=== PATIENT | female | born 2005 | race Asian ===

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

== ENCOUNTER 2025-05-06 13:16 | Emergency (ER) | payer OTHER, SELFPAY ==
[2025-05-06 13:18] VITALS: BP 95/59; PULSE 61; RESP 20; TEMP 36.6; O2SAT 100; BMI 26.3
--- NOTE | 2025-05-06 14:08 | EKG12_ITS ---
Test Reason : DIZZY Blood Pressure : */* mmHG Vent. Rate : 57 BPM Atrial Rate : 57 BPM P-R Int : 128 ms QRS Dur : 86 ms QT Int : 396 ms P-R-T Axes : 34 44 22 degrees QTcB Int : 385 ms Sinus bradycardia Otherwise normal ECG Confirmed by AMAYA DIAZ ([id number]), manuscript editor MARYSE SHIRLEY ([id number]) on 05/07/2025 1:49:41 PM Referred By: Confirmed By: AMAYA DIAZ
--- NOTE | 2025-05-06 14:14 | EX.ED.DYSGE1 ---
HPI History of Present Illness Chief Complaint: Dizziness Narrative Narrative: Chief complaint and HPI: Vertigo. 19-year-old female with past medical history of vertigo, Graves' disease who is now hypothyroidism per her report not on medication presents for evaluation of vertigo. Patient states that she has a history of intermittent vertigo since she was in elementary school. Does not take any medication for the vertigo. She states this morning she woke up and shortly later developed dizziness which she describes as room spinning. Associated symptom is nausea. States there was an episode where she felt weak and presyncopal however this quickly resolved. Patient admits to not eating or drinking much today. She has an IUD with irregular menstrual cycles but does not believe herself to be . She denies any fever, chills, shortness of breath, chest pain, abdominal pain, dysuria. Review of systems: See HPI Medications: As listed on the chart Allergies: As listed on the chart PFSH: Per chart Vital signs: As listed on the chart. Reviewed. Physical exam: Gen: A&O x3, NAD Head: Normocephalic, atraumatic Eyes: No sclera icterus, conjunctiva clear, PERRL, EOMI, no nystagmus ENT: TMs clear BL, moist mucous membranes, posterior oropharynx unremarkable, uvula midline, tonsils not enlarged Neck: Trachea midline, No JVD, Full ROM CV: RRR, no murmurs, no peripheral edema Resp: Lungs CTA BL, no w/r/c GI: Abd soft, non-distended, non-tender, no r/r/g Musc: Full ROM, no deformity, strength +5/5 in all extremities Skin: Warm, dry, no rash Neuro: Alert, oriented, grossly intact, sensation intact Psych: Cooperative, appropriate mood and affect [facility] Medical History (Updated 05/06/25 @ 17:[address] Jusot De León, ) Depression PTSD (post-traumatic stress disorder) Graves disease Vertigo Hyperthyroidism Home Medications ?Medication ?Instructions ?Recorded ?Last Taken ?Type meclizine 25 mg tablet 25 mg PO 4X/DAY PRN PRN Dizziness 05/06/25 Unknown Rx 3 days #12 tabs Allergy/AdvReac Type Severity Reaction Status Date / Time No Known Allergies Allergy Verified 05/06/25 13:21 Social History Smoking Status: Never smoker EXAM Physical Exam Const Vital Signs: 05/06/25 13:18 05/06/25 14:19 05/06/25 15:16 Temperature 98 F Temperature Source Oral Pulse Rate 61 78 Pulse Rate [Lying] 68 Pulse Rate [Sitting (for 1 minute prior to obtaining)] 62 Pulse Rate [Standing (for 1 minute prior to obtaining)] 88 Respiratory Rate 20 H Blood Pressure 95/59 L 101/76 Blood Pressure [Lying] 101/67 Blood Pressure [Sitting (for 1 minute prior to obtaining)] 105/72 Blood Pressure [Standing (for 1 minute prior to obtaining)] 109/63 Blood Pressure Mean 71 84 Blood Pressure Mean [Lying] 78 Blood Pressure Mean [Sitting (for 1 minute prior to obtaining)] 83 Blood Pressure Mean [Standing (for 1 minute prior to obtaining)] 78 Pulse Ox 100 Oxygen Delivery Method Room Air MDM MDM MDM Narrative Medical decision making narrative: 19-year-old female with past medical history of vertigo, Graves' disease who is now hypothyroidism per her report not on medication presents for evaluation of vertigo. Patient states that she has a history of intermittent vertigo since she was in elementary school. Does not take any medication for the vertigo. States she developed vertigo earlier this morning. Mildly improved. Endorses decreased p.o. intake today. Differential diagnosis includes but is not limited to vertigo, dehydration, electrolyte abnormality, arrhythmia, thyroid disease, , UTI, orthostatic hypotension. NS bolus, meclizine ordered for symptoms. Basic labs ordered with EKG. Orthostatic vital signs are negative except patient did endorse dizziness with positions. CBC unremarkable without leukocytosis or anemia. BMP unremarkable without significant electrolyte abnormality or RONNY. Thyroid unremarkable. UA negative for UTI. Patient does have RBCs and +1 bacteria however she has no leuk esterase or WBCs. She denies any dysuria, frequency, hematuria. Will send for culture but not treat for infection. Urine negative. On reevaluation, patient states her dizziness has resolved. She was able to ambulate in emergency department without difficulty. Suspect patient's symptoms are likely secondary to her known vertigo. Meclizine as needed for vertigo. Follow-up with PCP. Return precautions explained. She friend understand the plan. Patient will discharge home. EKG: Interpreted by me/EM physician: Chest x-ray shows sinus bradycardia without any acute ischemic changes. Heart rate 57 Impression: 1. Vertigo 2. History of vertigo Lab Data Labs: Laboratory Results - last 24 hr 05/06/25 05/06/25 05/06/25 13:04 14:15 15:28 WBC 6.0 RBC 3.92 L Hgb 12.3 Hct 35.3 L MCV 90.1 MCH 31.4 MCHC 34.8 RDW Std Deviation 38.7 RDW Coeff of Иван 11.8 Plt Count 234 MPV 10.1 Immature Gran % (Auto) 0.200 Neut % (Auto) 61.9 Lymph % (Auto) 31.3 [place] % (Auto) 4.9 Eos % (Auto) 1.2 Baso % (Auto) 0.5 Absolute Neuts (auto) 3.7 Absolute Lymphs (auto) 1.86 Nucleated RBC % 0 Sodium 137 Potassium 4.1 Chloride 103 Carbon Dioxide 22.6 Anion Gap 12 BUN 10 Creatinine 0.89 Estim Creat Clear Calc 90.17 Est GFR (MDRD) Non-Af 95 BUN/Creatinine Ratio 11.2 Glucose 87 Calcium 9.0 TSH 0.654 Free T4 1.00 Urine Color Yellow Urine Clarity Sl. Cloudy Urine pH 6.0 Ur Specific [place] 1.015 Urine Protein 30 H Urine Glucose (UA) Normal Urine Ketones Negative Urine Occult Blood 50 H Urine Nitrite Negative Urine Bilirubin Negative Urine Urobilinogen Normal Ur Leukocyte Esterase Negative Urine RBC 5-10 SEEN Urine WBC 0-5 SEEN Ur Squamous Epith Cells 0-5 SEEN Urine Bacteria 1+ Urine Mucus 1+ Urine Test Negative Discharge Plan Triage Chief Complaint: Dizziness ED Provider: Justo De León Dx/Rx/DC Orders Clinical Impression: Vertigo Instructions: ED Vertigo, Unspecified Prescriptions: New meclizine 25 mg tablet 25 mg PO 4X/DAY PRN PRN (Reason: Dizziness) 3 Days Qty: 12 0RF Primary Care Provider: [facility] Doctor,Out of Referrals: Delvis Conner MD [Med Staff - Active Staff] - 3-5 Days Activity Restrictions/Additional Instructions: Follow-up with your primary care physician. Given that you are out of town, I recommend you following up with the primary care physician in the area. One is provided above. Return back to the ED if symptoms change or worsen. Meclizine as needed for dizziness Print Language: Mosotho Disposition Disposition: Home, Self Care
[2025-05-06 14:19] VITALS: BP 101/67; BP 105/72; BP 109/63; PULSE 62; PULSE 68; PULSE 88
[2025-05-06 14:24] LABS: Hematocrit 35.3 % (37-47); Hemoglobin 12.3 g/dL (12.0-15.0); Immature Granulocytes Count 0.010 X10^3/uL (0.0-0.0); Mean Corp Hgb Conc 34.8 g/dL (32-36); Mean Corpuscular Volume 90.1 fL (81-99); Mean Platelet Vol. 10.1 fl (6.2-12.0); NRBC Flagged by Analyzer 0 % (0-5); Platelet Count 234 K/mm3 (150-450); RBC Distribution Width CV 11.8 % (11.6-14.6); RBC Distribution Width SD 38.7 fl (35.1-43.9); Red Blood Count 3.92 M/mm3 (4.2-5.4); White Blood Count 6.0 K/mm3 (4.4-11.0)
[2025-05-06] MEDS: 0.9% Normal Saline (1000mL) 1,000 ML 1000 ML IV (14:24)
[2025-05-06 14:50] LABS: Anion Gap 12 (5-15); BUN 10 mg/dL (4-19); BUN/Creat Ratio 11.2 RATIO (10-20); Calcium,Total 9.0 mg/dL (7.6-11.0); Carbon Dioxide 22.6 mmol/L (21.0-32.0); Chloride 103 mmol/L (98-108); Estimated Creatinine Clearance 90.17 ml/min (50-250); Glucose 87 mg/dL (70-99); Potassium 4.1 mmol/L (3.3-5.1)
[2025-05-06 15:16] VITALS: BP 101/76; PULSE 78
[2025-05-06 15:48] LABS: Internal QC Validated? YES +Cl - CLEAR BKGD; Pregnancy, Urine Negative Negative; Record Kit Lot#,Urine Preg 962302
[2025-05-06 15:53] LABS: Color, Urine Yellow (Yellow); Glucose, Dipstick Normal (Normal); Ketone-Dipstick Negative (Negative); Leukocyte Esterase-Dipstick Negative /ul (Negative); Nitrite-Dipstick Negative (Negative); Occult Blood-Urine 50 /ul (Negative); Protein-Dipstick 30 mg/dl (Negative); Specific Gravity, Urine 1.015 (1.002-1.030); Urine Bilirubin Dipstick Negative (Negative)
[2025-05-06 16:37] LABS: Red Blood Cells-Urine 5-10 SEEN /hpf (0-5); Squamous Epithelial Cells - UA 0-5 SEEN /hpf (5-10)
[2025-05-06 16:38] LABS: Mucous, Urine 1+ /hpf (<or=2+)
[2025-05-06 17:26] VITALS: BP 107/67; PULSE 74; RESP 16; TEMP 36.1; O2SAT 100
== END 2025-05-06 17:26 | disposition home or self-care (01) ==
PROVIDERS: Emergency Provider Surgery; Visit Provider Surgery
DX: R42 Dizziness and giddiness (principal)
CPT/HCPCS: 80048; 81001; 81025; 84439; 84443; 85025; 87086; 93005; 96360; 99285; A4216

== ENCOUNTER 2025-05-22 11:59 | Emergency (ER) | payer OTHER, SELFPAY ==
[2025-05-22 12:00] VITALS: BP 123/89; PULSE 74; RESP 14; TEMP 35.6; O2SAT 98; BMI 23.9
--- NOTE | 2025-05-22 12:26 | EDS_ITS ---
HPI History of Present Illness Chief Complaint: Dizziness Informant: patient Narrative Narrative: 19-year-old female presenting with sudden onset of vertigo that is been intermittent for the past 2 days. 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 She states she has had this before, from time to time and she states her mom gets it as well. She has not tried taking any medication for it. It comes back whenever she changes position or moves her head. She has been nauseated but no vomiting. She denies any earache, tinnitus, changes in her hearing or vision. No recent illness in the last month or so, no colds or earaches. No headache. No focal neurologic symptoms. No recent injury to her head. [facility] Medical History Depression PTSD (post-traumatic stress disorder) Graves disease Vertigo Hyperthyroidism Home Medications ?Medication ?Instructions ?Recorded ?Last Taken ?Type meclizine 25 mg tablet 25 mg PO Q8H PRN PRN Dizzine ss #20 05/22/25 Unknown Rx tabs ondansetron 8 mg disintegrating 8 mg PO Q8H PRN nausea and 05/22/25 Unknown Rx tablet vomiting #20 tabs Allergy/AdvReac Type Severity Reaction Status Date / Time No Known Allergies Allergy Verified 05/22/25 12:00 Social History Smoking Status: Never smoker ROS ROS ED Constitutional Constitutional ED: Denies chills or fever(s) Eyes Eyes: Denies change in vision, diplopia, discharge from eye(s) or eye pain ENT ENT ED: Reports vertigo; Denies abnormal hearing, discharge from eye(s), ear pain, facial pain, hearing loss, rhinorrhea, sinus pressure, sore throat or tinnitus Cardiovascular Cardiovascular: Denies chest pain or palpitations Respiratory/Chest Respiratory/Chest: Denies cough or dyspnea Gastrointestinal Gastrointestinal: Reports nausea; Denies abdominal pain, diarrhea or vomiting Genitourinary Genitourinary ED: Denies dysuria or hematuria Musculoskeletal Musculoskeletal: Denies back pain or neck pain Integumentary Denies abscess or rash Neurologic Neurologic: Reports disequilibrium and dizziness; Denies headache(s), paresthesias or weakness Psychiatric Psychiatric: Denies anxiety or suicidal thoughts EXAM Physical Exam Const Vital Signs: 05/22/25 12:00 Temperature 96.1 F L Temperature Source Temporal Pulse Rate 74 Respiratory Rate 14 Blood Pressure 123/89 H Blood Pressure Mean 100 Pulse Ox 98 Oxygen Delivery Method Room Air Positive well nourished and well developed General Appearance ED: well developed and NAD HEENT Reports moist mucous membranes HEENT Narrative: Significant shanthi of cerumen in both external auditory canals. Part of the right TM is visible and normal-appearing, the left TM is not visible at all. normocephalic and atraumatic Eyes PERRL and EOMs intact bilaterally Eyes Narrative: No direction changing nystagmus. Negative skew test. Neck full ROM, no lymphadenopathy and supple Resp normal respiratory effort and clear to auscultation bilaterally Cardio regular rate, regular rhythm and no murmurs GI non-tender and non-distended Auscultation: normoactive bowel sounds Palpation: soft Back/Spine no CVA tenderness General Back: other FROM Extremity normal to inspection General Extremety ED: Negative for edema, pulses abnormal or tenderness General Extremity: Negative for edema or pulses abnormal Neuro oriented x3, CN's II-XII intact bilaterally and no sensory deficits noted Neuro Narrative: No dysmetria, normal [id number] and [id number] bilaterally. Positive jolt test. Normal speech no dysarthria or aphasia. NIHSS 0. Sensorium / Orientation: awake and alert Motor Exam: strength 5/5 throughout Psych mental status grossly normal Skin no rashes or lesions noted and no wounds MDM MDM MDM Narrative Medical decision making narrative: Patient basically has a hints exam that is consistent with peripheral etiology of her vertigo. At this time I do not think she needs other emergent test. Her vital signs are normal she is well-appearing, going to give her prescriptions for meclizine and Zofran and have her follow-up with ENT if she has persistence for more than a week. She is comfortable with that plan. Discharge Plan Triage Chief Complaint: Dizziness ED Provider: Daniel Johnson Dx/Rx/DC Orders Clinical Impression: Peripheral vertigo Instructions: Vertigo Inner Ear Problems, Labyrinthitis Prescriptions: New ondansetron 8 mg tablet,disintegrating 8 mg PO Q8H PRN (Reason: nausea and vomiting) Qty: 20 0RF Changed meclizine 25 mg tablet 25 mg PO Q8H PRN PRN (Reason: Dizziness) Qty: 20 0RF Primary Care Provider: Care Physician,No Primary Referrals: Wang Daniel MD [Med Staff - Active Staff] - 1 Week if not improving Print Language: Egyptian Disposition Disposition: Home, Self Care
[2025-05-22 12:45] VITALS: BP 128/68; PULSE 67; RESP 14; TEMP 36.6; O2SAT 100
== END 2025-05-22 12:49 | disposition home or self-care (01) ==
PROVIDERS: Emergency Provider Emergency Medicine; Visit Provider Emergency Medicine
DX: H81.399 Other peripheral vertigo, unspecified ear (principal); R29.700 NIHSS score 0
CPT/HCPCS: 99283